=== PATIENT | male | born 1965 | race Caucasian/White ===

== ENCOUNTER 2020-01-25 12:04 | Emergency (ER) | payer MEDICAID ==
[~2020-01-25] VITALS: Ht 175.3 cm; Wt 85.0 kg
[2020-01-25] MEDS ORDERED: MORPHINE SULFATE 10 MG/ML CPJ IM ONE ×2 (13:30→14:15)
[2020-01-25] MEDS ORDERED: TETANUS, DIPHTHERIA, PERTUSSIS VAC/PF 0.5ML (>7YR OLD) IM ONE (13:30)
[2020-01-25] MEDS ORDERED: SILVER SULFADIAZINE 1% CREAM 25GM TOP ONE (14:15)
[2020-01-25 14:25] VITALS: BP 141/96
== END 2020-01-25 15:03 | disposition home or self-care (01) ==
LOC: ER 12:21
DX: M25.531 Pain in right wrist (principal)
CPT/HCPCS: 90471; 90715; 96372; 99284; J2270